=== PATIENT | male | born 1990 | race Hispanic/Latino ===

== ENCOUNTER 2018-07-08 15:29 | Emergency (ER) | payer OTHER | END 2018-07-08 17:20 | disposition home or self-care (01) | LOC: EDH 15:29 | DX: L02.416 Cutaneous abscess of left lower limb (principal) ==

== ENCOUNTER 2021-02-17 14:26 | Emergency (ER) | payer OTHER | END 2021-02-17 16:56 | disposition left against medical advice (07) | LOC: EDH 14:26 | DX: M25.512 Pain in left shoulder (principal); Z53.21 Procedure and treatment not carried out due to patient leaving prior to being seen by health care provider | CPT/HCPCS: 73030; 73060 ==